=== PATIENT | male | born 1975 | race Caucasian/White ===

== ENCOUNTER 2016-02-28 16:24 | Emergency (ER) | payer BC ==
[2016-02-28] MEDS ORDERED: Sodium Chloride 0.9% 1,000 ML PRIMARY IV ONE (16:35)
[2016-02-28 16:55] LABS: HEMATOCRIT 46.7 % (42.0-52.0); MEAN CORPUSCULAR HEMOGLOBIN 28.3 PG (27-31); MEAN CORPUSCULAR HGB CONC 34.3 g/dL (33-37); MEAN PLATELET VOLUME 10.3 FL (7.4-12.2); RDW COEFFICIENT OF VARIATION 13.7 % (11.5-14.5); RED BLOOD COUNT 5.65 10^6/uL (4.70-6.10); WHITE BLOOD COUNT 7.69 10^3/uL (4.8-10.8)
--- NOTE | 2016-02-28 16:59 | PDOC ---
Chest Pain HPI - General Chief Complaint: Chest Pain Stated Complaint: CHEST PAIN Date Seen by Provider: 02/28/16 Time Seen by Provider: 16:52 Source: Patient Exam Limitations: POSITIVE: No limitations Treatment Prior to Arrival: REPORTS: None Nurse's Notes Reviewed & Considered: Yes - History of Present Illness Initial Comments: Patient comes in today with chest pain and shortness. Patient with history of increasing shortness of breath that became acutely worse today with chest pressure as scribe as crushing. It is nonradiating in nature. Stat EKG done shows ST elevation [place] inV1 and V2 V3 and V4. Body Location Affected: REPORTS: Chest Timing: REPORTS: Changing Over Time, Getting Worse Duration: 1-3 hours Severity: Severe Context: REPORTS: Other (Pain is constant and unremitting.) Quality: REPORTS: Pressure (Crushing substernal chest pain) Radiation: REPORTS: None Associated Symptoms: REPORTS: Shortness of Breath, Hurts to Breathe Modifying Factors: improves with: None Reported Similar Symptoms Previously: No Recently seen/treated/hospitalized: No Any Prior Injuries Related to Current Complaint?: No - Patient Home Medications Home Medications: Home Medications NK [No Home Medications Reported] 01/24/13 Amlodipine Besylate 5 mg PO DAILY #90 tab 09/30/14 Colchicine [Colcrys] 0.6 mg PO DAILY #90 tab 09/30/14 Indomethacin 50 mg PO TID #90 cap 09/30/14 Lisinopril 20 mg PO DAILY #90 tab 09/30/14 Rosuvastatin Calcium [Crestor] 20 mg PO DAILY #90 tab 09/30/14 - Patient Allergies Allergies/Adverse Reactions: Allergies Allergy/AdvReac Type Severity Reaction Status Date / Time No Known Allergies Allergy Unverified 09/17/13 09:03 Past Medical History - heen HEENT History: Denies History Cardiovascular History: Hypertension Respiratory History: Denies History Gastrointestinal History: Denies History Genitourinary History: Kidney Stones Endocrine History: Denies History Musculoskeletal History: Denies History Neurological History: Denies History Blood Disorders: Denies History Psychiatric History: Depression, Anixety Disorders Cancer History: Denies History History of MDRO: No Alcohol Use: Occasionally Substance Use Type: None Previous Surgical History: No Significant Family History: No pertinent family hx ROS - Limitations ROS Limitations: Clinical Condition Constitution: REPORTS: Denies Symptoms Cardiovascular: REPORTS: Chest Pain, Blood Pressure Problem Respiratory: REPORTS: Hurts To Breathe, Shortness Of Breath Neurological: REPORTS: Denies Neuro Symptoms Gastrointestinal: REPORTS: Denies GI Symptoms Endocrine: REPORTS: Denies Symptoms Musculoskeletal: REPORTS: Denies MS Symptoms Genitourinary: REPORTS: Denies Symptoms Eyes: REPORTS: Denies Symptoms ENT: REPORTS: Denies Symptoms Skin: REPORTS: Denies Skin Symptoms Lympathic: REPORTS: Denies Lympathic Symptoms Immunologic: POSITIVE: Denies Symptoms Psychiatric: POSITIVE: Anxiety Chest Pain PE - General Appearance General Appearance: REPORTS: Alert, Cooperative, Anxious, Moderate Distress - HEENT HEENT: POSITIVE: Head Inspection Nml, Eyes Inspection Nml, Ears Inspection Nml, Nose Inspection Nml, Pharynx Inspect. Nml, EOMI - Neck Neck: REPORTS: Normal Inspection - Respiratory Respiratory: REPORTS: Breath Sounds Normal, Chest Non-Tender, Decreased Air Movement - Cardiovascular Cardiovascular: REPORTS: Regular Rate and Rhythm, Heart Sounds Normal - Abdomen Abdomen: Soft: (All Quadrants), Normal Bowel Sounds: (All Quadrants), Denies Tenderness: (All Quadrants) - Skin Skin: REPORTS: Intact, Normal For Race, Warm, Dry, No Rash - Extremities Extremity: Non-Tender: (All Extremities), Normal ROM: (All Extremities), Normal Inspection: (All Extremities) - Neurological / Psychological Neurological: POSITIVE: Affect Apporpriate, Oriented X3 Chest Pain Progress - Patient's Progress Pain Medication Addressed: POSITIVE: Yes Status: POSITIVE: Unchanged MDM / ED Course: Patient was evaluated here in the emergency department, an IV was established, he received baby aspirin 4, heparin bolus, heparin drip, sublingual nitroglycerin, nitroglycerin drip, metoprolol, morphine, and Zofran. EKG showed ST elevation [place] in leads V1 and V2 V3 V4. I will contact Dr. Gandara in [place] who was graciously accepted the patient for transfer. Quality Measure Initiative: CP/AMI: POSITIVE: EKG, ASA, Transfer Quality Measure Initiative: CAP: POSITIVE: SaO2 - Consult Counseled: POSITIVE: Patient, RE: Lab Results, RE: DX Patient Care Time - Estimated PCT Patient Care Time (In Minutes): 15 Vital Signs - VS Reviewed Vital Signs Reviewed: Yes Discharge Clinical Impression: Myocardial infarction Discharge Disposition: Transferred to Tertiary Care Facility Condition: Stable Date Decision to Transfer to Another Facility: 02/28/16 Time Decision to Transfer to Another Facility: 16:45
[2016-02-28 17:01] LABS: ASPARTATE AMINO TRANSFERASE 23 IU/L (21-57); BILIRUBIN,TOTAL 0.8 mg/dL (0.3-1.2); BLOOD UREA NITROGEN 14 mg/dL (7-22); BUN/CREATININE RATIO 10.76 (6-20); CALCIUM 9.4 mg/dL (8.7-10.7); CHLORIDE 104 meq/L (98-112); CREATININE 1.3 mg/dL (0.70-1.50); EST GLOMERULAR FILTRATION > 60 (>60 ml/min/1.73m(2)); GLUCOSE 86 mg/dL (78-110); POTASSIUM 4.4 meq/L (3.8-5.2); SODIUM 143 meq/L (135-145); TOTAL PROTEIN 7.1 g/dL (6.1-8.0)
[2016-02-28] MEDS ORDERED: HEPARIN 5000 UNIT/1 ML ONE (17:09)
[2016-02-28] MEDS ORDERED: TICAGRELOR 90 MG PO ONE (17:09)
[2016-02-28] MEDS ORDERED: ASPIRIN 81 MG (BABY) CHEWABLE TABLET ONE (17:09)
[2016-02-28 17:22] VITALS: RESP 20; TEMP 97.8
[2016-02-28] MEDS ORDERED: METOPROLOL TARTRATE 5 MG/5 ML VIAL ONE (17:24)
[2016-02-28] MEDS ORDERED: NITROGLYCERIN 0.4 MG SL TAB (BOTTLE OF 3) SL ONE (17:24)
[2016-02-28] MEDS ORDERED: NORMAL SALINE 10 ML SYRINGE FLUSH IVP PRN (17:57)
--- NOTE | 2016-02-29 12:55 | EKG ---
[address] [address] Measurements Intervals [place] Rate: 92 P: 58 IN: 154 QRS: -6 QRSD: 88 T: 144 QT: 361 QTc: 411 Interpretive Statements SINUS RHYTHM POSSIBLE LEFT ATRIAL ENLARGEMENT ST DEVIATION AND MODERATE T-WAVE ABNORMALITY, CONSIDER LATERAL ISCHEMIA No previous ECG available for comparison Electronically Signed On 02-29-16 17:39:36 MST by Pancho Arnold [email or web address]
== END 2016-02-28 17:01 | disposition short-term general hospital (02) ==
LOC: ER 16:24
DX: I21.3 ST elevation (STEMI) myocardial infarction of unspecified site (principal); R07.9 Chest pain, unspecified; R06.02 Shortness of breath
CPT/HCPCS: 80053; 84484; 85027; 93005; 93010; 99285; J1644